=== PATIENT | female | born 1985 | race Native Hawaiian/Other Pacific Islander ===

== ENCOUNTER 2017-01-21 09:31 | Emergency (ER) | payer OTHER ==
[~2017-01-21] VITALS: Ht 152.4 cm; Wt 52.6 kg
[~2017-01-21 09:31] MED LIST: ADIPEX PO; HYDR25TA60 PO
[2017-01-21 11:18] LABS: PLATELET COUNT 316 K/uL (152-353)
[2017-01-21 11:25] LABS: SODIUM 138 mmol/L (136-145)
== END 2017-01-21 12:35 | disposition home or self-care (01) ==
LOC: ED 09:31
PROVIDERS: Specialist
DX: R10.9 Unspecified abdominal pain (principal); G89.29 Other chronic pain; F15.10 Other stimulant abuse, uncomplicated
CPT/HCPCS: 36415; 80053; 80307; 81000; 81025; 82150; 82272; 83690; 83735; 85027; 99283; G0479

== ENCOUNTER 2017-04-03 20:15 | Emergency (ER) | payer OTHER ==
[~2017-04-03] VITALS: Ht 152.4 cm; Wt 45.4 kg
== END 2017-04-03 21:36 | disposition home or self-care (01) ==
LOC: ED 20:15
DX: R51 Headache (principal); R10.2 Pelvic and perineal pain; R06.02 Shortness of breath; R82.90 Unspecified abnormal findings in urine
CPT/HCPCS: 99281

== ENCOUNTER 2018-09-18 09:27 | Outpatient (CLI) | payer OTHER | END 2018-09-18 20:49 | disposition home or self-care (01) | LOC: US 09:27 | DX: Z97.5 Presence of (intrauterine) contraceptive device (principal) ==